=== PATIENT | female | born 1990 | race Caucasian/White ===

== ENCOUNTER 2016-11-13 05:54 | Day surgery (SDC) | payer OTHER ==
[~2016-11-13] VITALS: Ht 162.6 cm; Wt 77.1 kg
[2016-11-13] MEDS ORDERED: ACETAMINOPHEN/CODEINE 300/30MG 1 TAB PO PRN (08:30)
[2016-11-13] MEDS ORDERED: ONDANSETRON 4 MG/2 ML VIAL IVP PRN (08:30)
[2016-11-13] MEDS ORDERED: IBUPROFEN 800 MG TAB PO PRN (08:30)
[2016-11-13] MEDS ORDERED: MORPHINE SULFATE 4 MG/ML SYR IM/IVP PRN (08:30)
[2016-11-13] MEDS ORDERED: fentaNYL 0.05 MG/ML VIAL ONE (09:46)
[2016-11-13] MEDS ORDERED: MIDAZOLAM 2 MG/2 ML VIAL ONE (09:46)
[2016-11-13] MEDS ORDERED: MORPHINE SULFATE 4 MG/ML SYR ONE (09:46)
[2016-11-13] MEDS ORDERED: METOCLOPRAMIDE 10 MG/2 ML INJ VIAL IVP PRN (10:20)
[2016-11-13] MEDS ORDERED: MIDAZOLAM 2 MG/2 ML VIAL IV ONE (10:20)
[2016-11-13] MEDS ORDERED: MORPHINE SULFATE 4 MG/ML SYR IVP PRN ×2 (10:20)
[2016-11-13] MEDS ORDERED: MORPHINE SULFATE 2 MG/ML SYR IVP PRN (10:20)
== END 2016-11-13 12:32 | disposition home or self-care (01) ==
LOC: MDS 05:54 → MMU 05:57 → MDS 12:32
PROVIDERS: ATTEND Obstetrics & Gynecology
DX: N73.6 Female pelvic peritoneal adhesions (postinfective) (principal); D25.9 Leiomyoma of uterus, unspecified; K76.0 Fatty (change of) liver, not elsewhere classified; G89.29 Other chronic pain; Z98.890 Other specified postprocedural states; Z79.899 Other long term (current) drug therapy
CPT/HCPCS: 58660; 82374; J0690; J2250; J2270; J3010; J7060; J7120

== ENCOUNTER 2022-07-18 16:49 | Emergency (ER) | payer OTHER ==
[~2022-07-18] VITALS: Ht 162.6 cm; Wt 86.2 kg
[2022-07-18 16:53] VITALS: BP 129/51
--- NOTE | 2022-07-18 16:57 | NUR ---
PT BIBA ALS TO BED 7
[2022-07-18] MEDS ORDERED: NACL 0.9% 1,000 ML IV SCH (17:05)
[2022-07-18] MEDS ORDERED: NACL 0.9% 1,000 ML IV ONE (17:10)
[2022-07-18] MEDS ORDERED: KETOROLAC 30 MG/ML VIAL IVP ONE (17:10)
--- NOTE | 2022-07-18 17:40 | NUR ---
32 y/o female biba from home for c/o right sided flank pain x today. Patient denies any trauma or injury. Denies any fever, chills, nausea or vomiting. Denies any blood in urine. Patient took Tylenol before arrival. Medical History: Denies NKDA
[2022-07-18 17:59] LABS: BASOPHILS % (AUTO) 0.5 % (0.0-2.0); EOSINOPHILS # (AUTO) 0.4 K/uL (0-0.4); EOSINOPHILS % (AUTO) 4.6 % (0.0-4.0); HEMATOCRIT 38.8 % (36-48); HEMOGLOBIN 13.2 g/dL (12.0-16.0); LYMPHOCYTES # (AUTO) 2.3 K/uL (2.5-16.5); LYMPHOCYTES % (AUTO) 26.8 % (20.5-51.1); MEAN CORPUSCULAR HEMOGLOBIN 30 pg (27-31); MEAN CORPUSCULAR HGB CONC 34 g/dL (33-37); MEAN CORPUSCULAR VOLUME 87.9 fL (80-94); MONOCYTES # (AUTO) 0.6 K/uL (0.8-1.0); MONOCYTES % (AUTO) 6.9 % (1.7-9.3); NEUTROPHILS # (AUTO) 5.2 K/uL (1.8-7.7); NEUTROPHILS % (AUTO) 61.2 % (42.2-75.2); PLATELET COUNT (AUTO) 240 K/uL (140-450); RED BLOOD CELL COUNT(AUTO) 4.41 MIL/uL (4.20-5.40); RED CELL DISTRIBUTION WIDTH 13.3 % (11.6-13.7); WHITE BLOOD COUNT (AUTO) 8.4 K/uL (4.8-10.8)
[2022-07-18] MEDS ORDERED: KETOROLAC 30 MG/ML VIAL ONE (18:15)
[2022-07-18 18:20] LABS: APPEARANCE,URINE CLEAR (CLEAR); BILIRUBIN,URINE NEGATIVE (NEGATIVE); BLOOD, URINE NEGATIVE (NEGATIVE); COLOR,URINE YELLOW (YELLOW); LEUKOCYTE ESTERASE ,URINE NEGATIVE (NEGATIVE); NITRITE, URINE NEGATIVE (NEGATIVE); PH,URINE 7.5 (5.0-9.0); UGLUCOSE NEGATIVE (NEGATIVE)
[2022-07-18 18:26] LABS: ALBUMIN 3.4 g/dL (3.4-5.0); ANION GAP 11.4 (8-16); CARBON DIOXIDE 25.2 mmol/L (21-32); CREATININE 0.8 mg/dL (0.6-1.3); POTASSIUM 3.6 mmol/L (3.5-5.1); TOTAL BILIRUBIN 0.2 mg/dL (0.0-1.0)
--- NOTE | 2022-07-18 18:32 | NUR ---
Patient returned from CT.
[2022-07-18] MEDS ORDERED: LID5T TP (19:12)
[2022-07-18] MEDS ORDERED: ACET-10509 PO (19:12)
[2022-07-18] MEDS ORDERED: METH-1681 PO (19:12)
[2022-07-18] MEDS ORDERED: IBUP-2213 PO (19:12)
--- NOTE | 2022-07-18 19:23 | NUR ---
Report given to [facility] for transfer of care.
--- NOTE | 2022-07-18 19:53 | NUR ---
PT PENDING DISPO
--- NOTE | 2022-07-18 20:10 | NUR ---
Patient discharged with v/s stable. Written and verbal after care instructions given and explained. Patient verbalized understanding. Ambulatory with steady gait. All questions addressed prior to discharge. Advised to follow up with PMD.
[2022-07-18 20:11] VITALS: BP 103/42
--- NOTE | 2022-07-18 20:17 | NUR ---
The patient's care was reviewed and supervised by Mariah Fallon RN, RN.
== END 2022-07-18 20:10 | disposition home or self-care (01) ==
LOC: MED 16:49
DX: S39.012A Strain of muscle, fascia and tendon of lower back, initial encounter (principal); R03.0 Elevated blood-pressure reading, without diagnosis of hypertension; Z79.899 Other long term (current) drug therapy; X58.XXXA Exposure to other specified factors, initial encounter; Y93.89 Activity, other specified; Y92.89 Other specified places as the place of occurrence of the external cause; Y99.8 Other external cause status
CPT/HCPCS: 36415; 74176; 80053; 81003; 81025; 82550; 83605; 83690; 85025; 87040; 87086; 96361; 96374; 99285; J1885; J7030

== ENCOUNTER 2022-07-24 11:20 | Emergency (ER) | payer OTHER ==
[~2022-07-24] VITALS: Ht 162.6 cm; Wt 90.7 kg
[~2022-07-24 11:20] MED LIST: ACET-10509 PO; IBUP-2213 PO; LID5T TP; METH-1681 PO
[2022-07-24 11:33] VITALS: BP 120/59
--- NOTE | 2022-07-24 11:54 | NUR ---
PT STATES PT PRESENTS TO ED FOR LOWER BACK PAIN ONSET "SEVERAL DAYS". PT STATES SHE WAS SEEN IN ER FRIDAY FOR RT THIGH PAIN. AFTER A FALL. CALLED PMD TODAY, DR LAST IN [place] AND INSTRUCTED TO COME TO ED FOR EVAL AND TX. COMFORT MEASURES AND SUPPORTIVE CARE INITIATED. ESCORTED TO BED BY FELIPE VALENZUELA.
[2022-07-24] MEDS ORDERED: MORPHINE SULFATE 4 MG/ML SYR IM ONE (12:15)
[2022-07-24] MEDS ORDERED: IBUP-2213 PO (12:19)
[2022-07-24] MEDS ORDERED: ACET-8905 PO (12:19)
== END 2022-07-24 12:37 | disposition home or self-care (01) ==
LOC: MED 11:20
DX: M54.50 Low back pain, unspecified (principal); Z79.899 Other long term (current) drug therapy; Z79.1 Long term (current) use of non-steroidal anti-inflammatories (NSAID)
CPT/HCPCS: 99283

== ENCOUNTER 2023-01-09 18:16 | Emergency (ER) | payer OTHER ==
[~2023-01-09] VITALS: Ht 167.6 cm; Wt 81.6 kg
[~2023-01-09 18:16] MED LIST changes: +ACET-8905 PO
[2023-01-09 18:40] VITALS: BP 122/76; PULSE 79; RESP 18; TEMP 97; O2SAT 98
== END 2023-01-09 19:17 | disposition home or self-care (01) ==
LOC: MED 18:16
DX: S61.206A Unspecified open wound of right little finger without damage to nail, initial encounter (principal); R03.0 Elevated blood-pressure reading, without diagnosis of hypertension; Z79.899 Other long term (current) drug therapy; Z79.1 Long term (current) use of non-steroidal anti-inflammatories (NSAID); W26.8XXA Contact with other sharp object(s), not elsewhere classified, initial encounter; Y93.89 Activity, other specified; Y92.89 Other specified places as the place of occurrence of the external cause; Y99.8 Other external cause status
CPT/HCPCS: 12001; 90715; 99282

== ENCOUNTER 2024-01-23 09:29 | Emergency (ER) | payer BC, OTHER ==
[~2024-01-23] VITALS: Ht 162.6 cm; Wt 90.3 kg
[~2024-01-23 09:29] MED LIST changes: -ACET-10509 PO; +ACET500T99 PO
[2024-01-23 09:34] VITALS: BP 133/49; PULSE 82; RESP 18; TEMP 98.6; O2SAT 98
[2024-01-23] MEDS: ASPIRIN 325 MG TAB PO ONE (10:33)
[2024-01-23 10:55] LABS: BASOPHILS # (AUTO) 0.1 K/uL (0.00-0.22); BASOPHILS % (AUTO) 0.8 % (0.0-2.0); EOSINOPHILS # (AUTO) 0.4 K/uL (0-0.4); EOSINOPHILS % (AUTO) 4.5 % (0.0-4.0); HEMATOCRIT 39.5 % (36-48); HEMOGLOBIN 13.3 g/dL (12.0-16.0); LYMPHOCYTES # (AUTO) 2.9 K/uL (2.5-16.5); LYMPHOCYTES % (AUTO) 35.6 % (20.5-51.1); MEAN CORPUSCULAR HEMOGLOBIN 29 pg (27-31); MEAN CORPUSCULAR HGB CONC 34 g/dL (33-37); MEAN CORPUSCULAR VOLUME 86.8 fL (80-94); MONOCYTES # (AUTO) 0.5 K/uL (0.8-1.0); MONOCYTES % (AUTO) 6.5 % (1.7-9.3); NEUTROPHILS # (AUTO) 4.3 K/uL (1.8-7.7); NEUTROPHILS % (AUTO) 52.6 % (42.2-75.2); PLATELET COUNT (AUTO) 271 K/uL (140-450); RED BLOOD CELL COUNT(AUTO) 4.55 MIL/uL (4.20-5.40); RED CELL DISTRIBUTION WIDTH 13.6 % (11.6-13.7); WHITE BLOOD COUNT (AUTO) 8.2 K/uL (4.8-10.8)
[2024-01-23 11:15] LABS: ANION GAP 9.8 (8-16); CALCIUM 8.5 mg/dL (8.5-10.1); CARBON DIOXIDE 28.7 mmol/L (21-32); CREATININE 0.7 mg/dL (0.6-1.3); POTASSIUM 3.5 mmol/L (3.5-5.1)
[2024-01-23] MEDS: diphenhydrAMINE 50 MG/ML VIAL IVP ONE (11:21)
[2024-01-23] MEDS: PROCHLORPERAZINE 10 MG/2 ML VIAL IVP ONE (11:22)
[2024-01-23] MEDS ORDERED: IBUP-2213 PO (12:16)
[2024-01-23 12:30] VITALS: BP 113/56; PULSE 66; RESP 16; TEMP 98.3; O2SAT 99
== END 2024-01-23 12:30 | disposition home or self-care (01) ==
LOC: MED 09:29
DX: G43.909 Migraine, unspecified, not intractable, without status migrainosus (principal); R07.89 Other chest pain; R20.2 Paresthesia of skin; E11.9 Type 2 diabetes mellitus without complications; Z98.890 Other specified postprocedural states; Z79.899 Other long term (current) drug therapy
CPT/HCPCS: 36415; 71045; 80048; 81025; 84484; 85025; 93005; 96374; 96375; 99285; J0780; J1200; Q0092